=== PATIENT | female | born 1950 | race Caucasian/White ===

== ENCOUNTER 2017-08-07 12:03 | Emergency (ER) | payer MEDICARE, OTHER ==
[2017-08-07 12:10] VITALS: BP 171/93; PULSE 80; RESP 26; TEMP 97.8; O2SAT 99
[2017-08-07] MEDS ORDERED: LIPI20TA PO (12:16)
[2017-08-07] MEDS ORDERED: PROZ20CA11 PO (12:16)
[2017-08-07] MEDS ORDERED: DIAZ5 PO (12:16)
[2017-08-07] MEDS ORDERED: COZA50TA PO (12:16)
[2017-08-07 12:25] VITALS: BP 166/103; PULSE 65; RESP 18; O2SAT 99
[2017-08-07 12:27] LABS: AUTOMATED NEUTROPHIL # 6.9 TH/MM3 (1.8-7.7); BASOPHIL # 0.1 TH/MM3 (0-0.2); BASOPHIL % 0.8 % (0.0-2.0); EOSINOPHIL % 0.4 % (0.0-4.0); HEMATOCRIT 43.8 % (35.0-46.0); HEMOGLOBIN 14.7 GM/DL (11.6-15.3); LYMPH % 19.3 % (9.0-44.0); LYMPHOCYTE # 1.8 TH/MM3 (1.0-4.8); MEAN CORPUSCULAR HEMOGLOBIN 28.5 PG (27.0-34.0); MEAN CORPUSCULAR HGB CONC 33.5 % (32.0-36.0); MEAN PLATELET VOLUME 8.2 FL (7.0-11.0); MONOCYTE # 0.7 TH/MM3 (0-0.9); NEUT % 72.5 % (16.0-70.0); PLATELET COUNT 419 TH/MM3 (150-450); RED BLOOD COUNT 5.15 MIL/MM3 (4.00-5.30); RED CELL DISTRIBUTION WIDTH 13.7 % (11.6-17.2); WHITE BLOOD COUNT 9.5 TH/MM3 (4.0-11.0)
[2017-08-07] MEDS ORDERED: ASPIRIN 81 MG CHEW TAB CHEW ONE (12:30)
[2017-08-07] MEDS ORDERED: LORazepam 2 MG/ML VIAL IV PUSH ONE (12:30)
[2017-08-07 12:39] VITALS: BP 165/105; PULSE 68; RESP 16; O2SAT 97
--- NOTE | 2017-08-07 12:41 | RADRPT ---
EXAM DATE/TIME: 08/07/2017 12:28 [place] COMPARISON: No previous studies available for comparison. INDICATIONS : Chest pain today. MEDICAL HISTORY : Hypertension. SURGICAL HISTORY : None. ENCOUNTER: Initial ACUITY: 1 day PAIN SCORE: 7/10 LOCATION: Bilateral chest FINDINGS: A single view of the chest demonstrates the lungs to be symmetrically aerated without evidence of mas s, infiltrate or effusion. The cardiomediastinal contours are unremarkable. Osseous structures are intact. CONCLUSION: No acute disease. Jony Durán MD on August 07, 2017 at 12:39 Board Certified Radiologist. This report was verified electronically.
[2017-08-07 12:42] LABS: CHLORIDE 109 MEQ/L (98-107); SODIUM (NA) 140 MEQ/L (136-145)
[2017-08-07 12:46] LABS: ALBUMIN 4.4 GM/DL (3.4-5.0); BLOOD UREA NITROGEN 15 MG/DL (7-18); CALCIUM 9.3 MG/DL (8.5-10.1); GLUCOSE,RANDOM 100 MG/DL (74-106)
[2017-08-07 12:50] LABS: ALT (GPT) 33 U/L (10-53); AST (GOT) 26 U/L (15-37); GLOMERULAR FILTRATION RATE 55 ML/MIN (>89)
[2017-08-07 12:51] LABS: TOTAL BILIRUBIN ADULT 0.9 MG/DL (0.2-1.0); TOTAL PROTEIN 8.7 GM/DL (6.4-8.2)
[2017-08-07 12:52] LABS: ALKALINE PHOSPHATASE 122 U/L (45-117)
[2017-08-07 12:54] LABS: TROPONIN I LESS THAN 0.02 NG/ML (0.02-0.05)
[2017-08-07] MEDS ORDERED: POTASSIUM CHLORIDE 20 MEQ CONTROLLED RELEASE TAB PO ONE (13:00)
[2017-08-07 13:02] VITALS: BP 159/95; PULSE 73; RESP 18; O2SAT 95
[2017-08-07] MEDS ORDERED: LORA-474 PO (13:19)
--- NOTE | 2017-08-07 13:20 | PD ---
HPI Chief Complaint: Chest Pain Time Seen by Provider: 12:11 Travel History International Travel<30 days: No Contact w/Intl Traveler<30days: No Traveled to known affect area: No History of Present Illness HPI 67-year-old female is complaining of chest pain. The pain started while she was having an argument with her significant other. It is a substernal pain that is aggravated by deep breathing and pressure. She is feeling short of breath and says numbness of her extremities. She has no history of heart disease. She does have a history of hypertension. She stopped smoking several years ago. She has been on Valium in the past and ran out 2 weeks ago [facility] Past Medical History Anxiety: Yes Depression: Yes High Cholesterol: Yes Hypertension: Yes ?: Not Social History Alcohol Use: Yes (COUPLE TIMES PER WEEK) Tobacco Use: No Substance Use: No Allergies-Medications (Allergen,Severity, Reaction): Coded Allergies: Penicillins (Verified Allergy, Unknown, UNKNOWN " A CHILD", 08/07/17) Reported Meds & Prescriptions Reported Meds & Active Scripts Active Reported Valium (Diazepam) 5 Mg Tab 5 Mg PO TID PRN Prozac (Fluoxetine HCl) 20 Mg Cap 20 Mg PO DAILY Lipitor (Atorvastatin Calcium) 20 Mg Tab 20 Mg PO HS Cozaar (Losartan Potassium) 50 Mg Tab 50 Mg PO DAILY Review of Systems General / Constitutional: No: Fever, Chills Eyes: No: Diploplia, Blurred Vision HENT: No: Headaches Cardiovascular: Positive: Chest Pain or Discomfort, No: Palpitations Respiratory: Positive: Shortness of Breath Gastrointestinal: No: Nausea, Vomiting Genitourinary: No: Urgency, Frequency Skin: No Rash Neurologic: No: Weakness Psychiatric: Positive: Anxiety Physical Exam Narrative GENERAL: Well-developed female. She appears quite frantic SKIN: Focused skin assessment warm/dry. HEAD: Atraumatic. Normocephalic. EYES: Pupils equal and round. No scleral icterus. No injection or drainage. ENT: No nasal bleeding or discharge. Mucous membranes pink and moist. NECK: Trachea midline. No JVD. CARDIOVASCULAR: Regular rate and rhythm. No murmur appreciated. RESPIRATORY: No accessory muscle use. Clear to auscultation. Breath sounds equal bilaterally. GASTROINTESTINAL: Abdomen soft, non-tender, nondistended. Hepatic and splenic margins not palpable. MUSCULOSKELETAL: No obvious deformities. No clubbing. No cyanosis. No edema. NEUROLOGICAL: Awake and alert. No obvious cranial nerve deficits. Motor grossly within normal limits. Normal speech. PSYCHIATRIC: A anxious initially Data Data Last Documented VS Vital Signs Date Time Temp Pulse Resp B/P (MAP) Pulse Ox O2 Delivery O2 Flow Rate FiO2 08/07/17 13:02 73 18 159/95 (116) 95 Room Air 08/07/17 12:10 97.8 Orders Orders Electrocardiogram (08/07/17 12:16) Complete Blood Count With Diff (08/07/17 12:16) Comprehensive Metabolic Panel (08/07/17 12:16) Troponin I (08/07/17 12:16) Chest, Single Ap (08/07/17 12:16) Lorazepam Inj (Ativan Inj) (08/07/17 12:30) Aspirin Chew (Aspirin Chew) (08/07/17 12:30) Potassium Chloride (Kcl) (08/07/17 13:00) Labs Laboratory Tests Test 08/07/17 12:20 White Blood Count 9.5 TH/MM3 Red Blood Count 5.15 MIL/MM3 Hemoglobin 14.7 GM/DL Hematocrit 43.8 % Mean Corpuscular Volume 85.0 FL Mean Corpuscular Hemoglobin 28.5 PG Mean Corpuscular Hemoglobin Concent 33.5 % Red Cell Distribution Width 13.7 % Platelet Count 419 TH/MM3 Mean Platelet Volume 8.2 FL Neutrophils (%) (Auto) 72.5 % Lymphocytes (%) (Auto) 19.3 % Monocytes (%) (Auto) 7.0 % Eosinophils (%) (Auto) 0.4 % Basophils (%) (Auto) 0.8 % Neutrophils # (Auto) 6.9 TH/MM3 Lymphocytes # (Auto) 1.8 TH/MM3 Monocytes # (Auto) 0.7 TH/MM3 Eosinophils # (Auto) 0.0 TH/MM3 Basophils # (Auto) 0.1 TH/MM3 CBC Comment DIFF FINAL Differential Comment Blood Urea Nitrogen 15 MG/DL Creatinine 1.00 MG/DL Random Glucose 100 MG/DL Total Protein 8.7 GM/DL Albumin 4.4 GM/DL Calcium Level 9.3 MG/DL Alkaline Phosphatase 122 U/L Aspartate Amino Transf (AST/SGOT) 26 U/L Alanine Aminotransferase (ALT/SGPT) 33 U/L Total Bilirubin 0.9 MG/DL Sodium Level 140 MEQ/L Potassium Level 3.4 MEQ/L Chloride Level 109 MEQ/L Carbon Dioxide Level 19.0 MEQ/L Anion Gap 12 MEQ/L Estimat Glomerular Filtration Rate 55 ML/MIN Troponin I LESS THAN 0.02 NG/ML MDM Medical Decision Making Medical Screen Exam Complete: Yes Emergency Medical Condition: Yes Medical Record Reviewed: Yes Differential Diagnosis Differential includes coronary artery disease, anxiety, atypical chest pain Narrative Course Patient was given Ativan with marked improvement in her clinical status. Her EKG is normal. Troponin is normal. Patient is stable for discharge Diagnosis Primary Impression: Anxiety Scripts Lorazepam (Ativan) 1 Mg Tab 1 MG PO Q8H Y for ANXIETY AND/OR AGITATION, #10 TAB 0 Refills Prov: Armand Ortega MD 08/07/17 Disposition: 01 DISCHARGE HOME Condition: Stable Armand Ortega MD Aug 07, 2017 13:20
--- NOTE | 2017-08-08 20:57 | EKG ---
Date Performed: 08/07/2017 Time Performed: 12:08:05 PTAGE: 67 years EKG: Sinus rhythm POSSIBLE LEFT ATRIAL ENLARGEMENT BORDERLINE ECG NO PREVIOUS TRACING DOCTOR: Isaias Mac Interpretating Date/Time 08/08/2017 20:56:38
== END 2017-08-07 13:34 | disposition home or self-care (01) ==
LOC: PHED 12:03
DX: F41.9 Anxiety disorder, unspecified (principal); R94.31 Abnormal electrocardiogram [ECG] [EKG]; I10 Essential (primary) hypertension; E78.00 Pure hypercholesterolemia, unspecified; F41.8 Other specified anxiety disorders
CPT/HCPCS: 71045; 80053; 84484; 85025; 93005; 96374; 99285; J2060